=== PATIENT | male | born 1990 | race Hispanic/Latino ===

== ENCOUNTER → 2020-06-17 | Day surgery (SDC) | payer BC, OTHER ==
[~2020-06-17] MED LIST: ACETAMINOPHEN 1000 MG/100 ML 100 ML IV ONE; ACETAMINOPHEN/CODEINE 300MG - 30MG TAB ONE; BUPIVACAINE 0.25% 30ML SDV INJ ONE; CEFAZOLIN SOD 1 GM/NS 50ML 100 ML IV ONE; DEXAMETHASONE SOD PHOS INJ 4 MG/ML VIAL IV ONE; FAMOTIDINE20 MG PO; FENTANYL CITRATE/PF 100MCG/2 ML INJ ONE; HYDROMORPHONE 1MG/1ML INJ ONE; MIDAZOLAM HCL 2 MG/2 ML VIAL ONE; MORPHINE SULFATE 2 MG/ML SYR 1ML ONE; MORPHINE SULFATE INJ 10 MG/ML ONE; ONDANSETRON HCL INJ 2MG/ML 2ML 2 MG/ML VIAL IV ONE; ONDANSETRON HCL INJ 2MG/ML 2ML 2 MG/ML VIAL ONE; ROCURONIUM BROMIDE 10 MG/ML 5ML VIAL IV ONE; SUGAMMADEX SODIUM 200 MG/2 ML VIAL IV ONE; XARELTO20 MG PO
[2020-06-17 10:30] VITALS: BP 119/79
--- NOTE | 2020-06-17 10:32 | Operative Report ---
DATE OF PROCEDURE: 06/17/2020 SURGEON: Daniel Mcbride MD PREOPERATIVE DIAGNOSES: 1. Hiatal hernia. 2. Chronic gastroesophageal reflux disease. POSTOPERATIVE DIAGNOSES: 1. Hiatal hernia. 2. Chronic gastroesophageal reflux disease. PREOPERATIVE INDICATION: Treat disease, prevent complications related to hiatal hernia. PROCEDURES: Laparoscopic hiatal hernia repair with Toupet, 270-degree, fundoplication. ANESTHESIA: General. KELP OR SEAGRASS GATHERER: Noel Anderson, assistant surveyor (needed due to complexity of case). FLUIDS: 600 mL of crystalloid. ESTIMATED BLOOD LOSS: 30 mL. DRAINS: None. COMPLICATIONS: None. SPECIMENS: None. GRAFTS: None. FINDINGS: Moderate size hiatal hernia with thickened hernia sac. DESCRIPTION OF PROCEDURE: The patient was brought to the operating room and was intubated under general endotracheal anesthesia. He was positioned supine with both arms abducted and all pressure points were appropriately padded. He was sterilely prepped and draped in the usual fashion. A preprocedure pause was performed identifying the patient, use of perioperative antibiotics, intended procedure, and staff surgeon. Access was gained via a 5 mm left subcostal incision using a Veress needle. The abdomen was insufflated to a pressure of 12 mmHg pressure, we were using the AirSeal device in order to help with stabilizing our pneumoperitoneum. Four additional trocars were placed in standard position. Liver retractor was used to expose the hiatus and stomach. I then incised the gastrohepatic ligament via the pars flaccida technique and then proceeded proximally toward the right ousmane of the diaphragm. I was then able to reduce a hiatal hernia by dissecting out the right and left ousmane of the diaphragm, taken down attachments anteriorly as well as laterally. I then mobilized the greater curvature of stomach proximally using the [place] LigaSure device by ligated the short gastric and posterior short gastric vessels. I was then able to mobilize the posterior aspect of the hiatus hernia and we placed a Kayode drain around the edge of the gastroesophageal junction for better exposure. Once the circumferential dissection was completed, we were able to obtain about 2 to 3 cm of intraabdominal esophageal length. I then repaired the hiatus posteriorly with interrupted 2-0 Surgidac suture. I then brought the fundus around itself to complete a 270-degree wrap and sutured either end of the fundus to the anterior surface of the esophagus with 2-0 Surgidac suture in interrupted fashion over length of about 3 cm. I then placed a posterior stitch between the fundus and the posterior ousmane in order to prevent reherniation. Once that was complete, we then closed the large port site with 0 Vicryl suture using a Hayes Cruz technique. We then verified hemostasis and removed the liver retractor and desufflated the abdomen. Trocars were removed. Incision sites were closed with 4-0 Monocryl suture in a subcuticular fashion. Dermabond dressings were applied. A 0.25% bupivacaine was used both at the preperitoneal incision sites. The patient tolerated the procedure well. Type of wound was type 1, clean. All surgical sponge and instrument counts were correct. MD SAMMIE Doran/ADIELL /[id number]
== END | disposition home or self-care (01) ==
LOC: OR 05:15
PROVIDERS: ATTEND Surgery
DX: K44.9 Diaphragmatic hernia without obstruction or gangrene (principal); K21.9 Gastro-esophageal reflux disease without esophagitis; F41.9 Anxiety disorder, unspecified; Z01.812 Encounter for preprocedural laboratory examination; Z11.59 Encounter for screening for other viral diseases; Z79.02 Long term (current) use of antithrombotics/antiplatelets; Z68.30 Body mass index [BMI] 30.0-30.9, adult; Z86.718 Personal history of other venous thrombosis and embolism
CPT/HCPCS: 43281; 93005; J0131; J0690; J1100; J1170; J2250; J2270 ×2; J2405; J3010; U0002